=== PATIENT | male | born 1980 | race Two or more races ===

== ENCOUNTER 2018-05-06 12:56 | Emergency (ER) | payer MEDICAID ==
[2018-05-06 13:11] VITALS: BP 119/75
--- NOTE | 2018-05-06 13:52 | ED Physician Documentation ---
PD HPI UPPER EXT INJURY - Stated complaint Stated Complaint: BI LAT HAND PX - Chief complaint Chief Complaint: Ext Problem - History obtained from History obtained from: Patient - History of Present Illness Location: Right, Left, Wrist, Hand Type of injury: Fall Where injury occurred: Other (off ladder 3 weeks ago and again yesterday) Timing - onset: Yesterday Timing - details: Abrupt onset Pain level max: 5 Pain level now: 3 Improved by: Rest Worsened by: Moving, Palpating Associated symptoms: No: Weakness, Numbness, Tingling, Swelling, Discolored Contributing factors: No: Anticoagulated Recently seen: Not recently seen Review of Systems Constitutional: denies: Fever, Chills GI: denies: Nausea, Vomiting Musculoskeletal: denies: Neck pain, Back pain Neurologic: denies: Focal weakness, Numbness, Headache PD PAST MEDICAL HISTORY - Past Medical History Past Medical History: No - Past Surgical History Past Surgical History: Yes - Present Medications Home Medications: Ambulatory Orders Medication Instructions Recorded Confirmed Acyclovir 200 mg PO BID 11/02/14 11/02/14 Doxycycline Hyclate 100 mg PO BID #28 capsule 11/02/14 Ibuprofen [Motrin] 800 mg PO Q8H PRN #30 tablet 05/06/18 - Allergies Allergies/Adverse Reactions: Allergies Allergy/AdvReac Type Severity Reaction Status Date / Time No Known Drug Allergies Allergy Verified 11/02/14 10:18 - Living Situation Living Situation: reports: With family Living Arrangement: reports: At home - Social History Does the pt smoke?: No Smoking Status: Never smoker Does the pt drink ETOH?: No Does the pt have substance abuse?: No PD ED PE NORMAL - Vitals Vital signs reviewed: Yes (O2 sat 97%RA) - General General: Alert and oriented X 3, No acute distress - HEENT HEENT: Moist mucous membranes - Neck Neck: Supple, no meningeal sign - Cardiac Cardiac: RRR - Respiratory Respiratory: No respiratory distress, Clear bilaterally - Derm Derm: Warm and dry - Extremities Extremities: Other (TTP B palms, proximal aspect. NVI. No snuffbox tenderness. ) - Neuro Neuro: Alert and oriented X 3 Results - Vitals Vitals: Vital Signs - 24 hr 05/06/18 13:07 Temperature 36.3 C L Heart Rate 71 Respiratory 16 Rate Blood Pressure 119/75 Oxygen O2 Source Room air - Rads (name of study) B wrist xray Radiology: Prelim report reviewed, EMP read contemporaneously, See rad report ( no acute fracutres or dislocations) PD MEDICAL DECISION MAKING - ED course Complexity details: reviewed results, re-evaluated patient, considered differential, d/w patient ED course: Patient is a 37-year-old male with bilateral hand and wrist contusions after falling off a ladder 3 weeks ago and then again yesterday. No acute findings on x-ray. He has a right Velcro wrist splint at home, given a left Velcro wrist splint here. Will follow-up with his doctor for further care. Patient counseled regarding signs and symptoms for which I believe and urgent re- evaluation would be necessary. Patient with good understanding of and agreement to plan and is comfortable going home at this time This document was made in part using voice recognition software. While efforts are made to proofread this document, sound alike and grammatical errors may occur. - Sepsis Event Vital Signs: Vital Signs - 24 hr 05/06/18 13:07 Temperature 36.3 C L Heart Rate 71 Respiratory 16 Rate Blood Pressure 119/75 Oxygen O2 Source Room air Departure - Departure Disposition: 01 Home, Self Care Clinical Impression: Contusion, hand Qualifiers: Encounter type: initial encounter Laterality: unspecified laterality Qualified Code(s): S60.229A - Contusion of unspecified hand, initial encounter Condition: Good Instructions: ED Contusion Hand Follow-Up: Ford Lizama MD [Primary Care Provider] - Within 1 week Prescriptions: Ibuprofen [Motrin] 800 mg PO Q8H PRN #30 tablet PRN Reason: PAIN &/OR FEVER Comments: Your x-rays are normal today. Follow-up with your doctor for further care. Wear the splint as needed for comfort. Discharge Date/Time: 05/06/18 14:24
--- NOTE | 2018-05-06 14:05 | XRAY Report ---
Reason: fall off ladder, B wrist pain Procedure Date: 05/06/2018 Accession Number: [id number] / [id number] Procedure: XR - Wrist 4 View BILAT CPT Code: FULL RESULT: EXAMS: 1. RIGHT WRIST RADIOGRAPHY 2. LEFT WRIST RADIOGRAPHY EXAM DATE: 05/06/2018 01:54 PM. CLINICAL HISTORY: Fall on the bilateral outstretched hands 3 weeks ago. The patient now repeated the injury and has pain right greater than left. COMPARISON: X-ray wrist complete 3 views 09/15/2008. TECHNIQUE: 3 views each wrist. FINDINGS: Right: Bones: Normal. No fractures or bone lesions. Joints: Normal. No subluxations. Soft Tissues: Normal. No soft tissue swelling. Left: Bones: Normal. No fractures or bone lesions. Joints: Normal. No subluxations. Soft Tissues: Normal. No soft tissue swelling. IMPRESSION: Normal bilateral wrist radiography. [facility]
== END 2018-05-06 14:24 | disposition home or self-care (01) ==
LOC: ED 12:56
DX: S60.222A Contusion of left hand, initial encounter (principal); S60.221A Contusion of right hand, initial encounter; S60.212A Contusion of left wrist, initial encounter; S60.211A Contusion of right wrist, initial encounter; W11.XXXA Fall on and from ladder, initial encounter
CPT/HCPCS: 99283

== ENCOUNTER 2019-09-10 13:46 | Emergency (ER) | payer MEDICAID ==
--- NOTE | 2019-09-10 14:35 | ED Physician Documentation ---
PD HPI ANIMAL BITE - Stated complaint Stated Complaint: DOG BITE/L HAND - Chief complaint Chief Complaint: Wound - History obtained from History obtained from: Patient - History of Present Illness Location of injury(ies): Left hand Details of the event: Dog, Immunized (he was breaking up dog fight between his dog and neighbors. His dog is immunized, not sure about the other dog. Bites to left hand. No numbness nor weakness of the hand. Does not feel bony tenderness.), Immunization unknown Timing - onset: How many hours ago (1) Timing - duration: Hours (1) Timing - details: Abrupt onset Worsened by: Palpating. No: Moving Associated symptoms: No: Weakness, Numbness Contributing factors: No: Immunocompromised, Anticoagulated Similar symptoms before: Has not had sx before Review of Systems Musculoskeletal: reports: Extremity pain Neurologic: denies: Focal weakness, Numbness PD PAST MEDICAL HISTORY - Past Medical History Past Medical History: No Cardiovascular: None Endocrine/Autoimmune: None - Past Surgical History Past Surgical History: Yes - Present Medications Home Medications: Ambulatory Orders Medication Instructions Recorded Confirmed Acyclovir 200 mg PO BID 11/02/14 11/02/14 Doxycycline Hyclate 100 mg PO BID #28 capsule 11/02/14 Ibuprofen [Motrin] 800 mg PO Q8H PRN #30 tablet 05/06/18 Amox/Clav 875/125 [Augmentin] 1 each PO Q12H #10 tablet 09/10/19 - Allergies Allergies/Adverse Reactions: Allergies Allergy/AdvReac Type Severity Reaction Status Date / Time No Known Drug Allergies Allergy Verified 09/10/19 14:00 - Social History Does the pt smoke?: No Smoking Status: Never smoker Does the pt drink ETOH?: No Does the pt have substance abuse?: No PD ED PE NORMAL - Vitals Vital signs reviewed: Yes - General General: Alert and oriented X 3, No acute distress, Well developed/nourished - Derm Derm: Normal color, Warm and dry - Extremities Extremities: Other (The left hand has a couple of superficial abrasions but 2 lacerations. One is on the dorsum of the hand overlying the second metacarpal. There is no foreign body nor bony tenderness. The patient has full extension and flexion of the finger. The other laceration is on the palmar aspect in the mid palm also without any bleeding foreign bodies nor bony tenderness. Good range of motion of all fingers with good sensation and color and capillary refill. There is no bony tenderness per se. He has a strong shingles roofer. He was concerned about potential sutures. Both wounds are only 1 cm in size with edges close together.) - Neuro Neuro: Alert and oriented X 3, No motor deficit, No sensory deficit, Normal speech Results - Vitals Vitals: Vital Signs - 24 hr 09/10/19 09/10/19 14:00 15:12 Temperature 36.7 C Heart Rate 86 84 Respiratory 17 16 Rate Blood Pressure 137/74 H 132/72 H O2 Saturation 98 100 Oxygen O2 Source Room air PD MEDICAL DECISION MAKING - ED course Complexity details: considered differential (small lacs and will heal okay; lower infection rate with not closing them tightly. ), d/w patient Departure - Departure Disposition: Home, Self Care Clinical Impression: Dog bite Qualifiers: Encounter type: initial encounter Qualified Code(s): W54.0XXA - Bitten by dog, initial encounter Condition: Stable Record reviewed to determine appropriate education?: Yes Instructions: ED Bite Dog Follow-Up: GIULIANA TRUJILLO MD [Primary Care Provider] - Prescriptions: Amox/Clav 875/125 [Augmentin] 1 each PO Q12H #10 tablet Comments: Keep the area clean and dry. Her tendency is to not stitch up bite wounds if they are small enough to heal well otherwise. The infection rate is actually lower with them still allowed to drain. Augmentin antibiotic twice daily for the next 5 days to reduce infection risk. Tylenol or ibuprofen as needed for pains. It is okay to use the hand as to lerated based on comfort. Discharge Date/Time: 09/10/19 15:12
[2019-09-10] MEDS ORDERED: AMOX/CLAV 875 MG/125 MG TABLET PO STA (14:48)
[2019-09-10 15:13] VITALS: BP 132/72
== END 2019-09-10 15:12 | disposition home or self-care (01) ==
LOC: ED 13:46
DX: S61.452A Open bite of left hand, initial encounter (principal); W54.0XXA Bitten by dog, initial encounter; Y93.89 Activity, other specified
CPT/HCPCS: 99282; 99283; A9270

== ENCOUNTER 2021-06-13 16:14 | Outpatient (CLI) | payer MEDICAID | END 2021-06-13 16:15 | disposition home or self-care (01) | LOC: COV 16:14 | PROVIDERS: ATTEND Family Medicine | DX: U07.1 COVID-19 (principal) ==